=== PATIENT | female | born 1970 | race Asian ===

== ENCOUNTER 2016-10-08 13:07 | Emergency (ER) | payer MEDICAID ==
--- NOTE | 2016-10-08 13:55 | ED Physician Chart ---
General Adult HPI - General Chief complaint: Vaginal Bleeding Stated complaint: VAGINAL DISCHARGE Time Seen by Provider: 10/08/16 13:23 Source: patient Mode of arrival: ambulatory Limitations: no limitations - History of Present Illness HPI Narrative: THIS IS A 46 YO FEMALE WITH VAGINAL BLEEDING SINCE HAVING AFTER TAKING AN PILL SIX DAYS AGO. SHE IS NOW CONCERNED ABOUT THE POSSIBILITY OF AN ECTOPIC SINCE HER HCG LEVEL IS UP RATHER THAN DOWN. SHE HAS HAD AN ULTRASOUND DONE AND THE UTERUS WAS EMPTY. Onset (ago): day(s) Location: pelvis, genitals Radiation: non-radiation Severity: mild Quality: dull Consistency: now resolved Improves with: none Worsens with: none Associated symptoms: other (BLEEDING) Treatments Prior to Arrival: none - Related Data Home Medications Medication Instructions Recorded Confirmed Lisdexamfetamine Dimesylate 1 tab PO DAILY 10/08/16 10/08/16 [Vyvanse] Allergies Allergy/AdvReac Type Severity Reaction Status Date / Time No Known Allergies Allergy Verified 10/08/16 13:31 Review of Systems Constitutional: Denies: 2, 3 Eyes: Denies: Eye Pain, Eye Discharge ENT ED: Denies: Ear Pain, Throat Pain Cardiovascular: Denies: Chest Pain, Palpitations Respiratory: Denies: 2, 3 Gastrointestinal: Denies: Abdominal Pain, Nausea Genitourinary: Reports: As per HPI, Other (POST AB VAGINAL BLEEDING). Denies: Urgency, Dysuria Musculoskeletal: Denies: Back Pain, Joint Swelling Integumentary: Denies: Rash, Lesions Neurological: Denies: Headache, Weakness Psychiatric: Denies: Anxiety, Depression Endocrine: Denies: 2, 3 Hematological/Lymphatic: Denies: Easy Bleeding, Easy Bruising Past Medical History - Past Medical History Attestation: Yes The following information was validated with the patient. 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) Family history: Reports: Other family history - Social History Exposure to secondhand smoke: No Alcohol use: Reports: None Drug use: Reports: None Family Medical History - Family Member Mother Age: 68 Ethnicity: Non- Living Status: Still Living Hx Family Hypertension: Yes Physical Exam - General Limitations: no limitations General appearance: alert, in no apparent distress, anxious - Head Head exam: atraumatic, normal inspection - Eye Eye exam: Present: normal appearance - ENT ENT exam: normal exam - Expanded ENT Exam External ear exam: Present: normal external inspection Mouth exam: Present: normal external inspection Throat exam: Present: normal inspection - Neck Neck exam: Present: normal inspection - Chest Chest inspection: Present: normal inspection - Respiratory Respiratory exam: Present: normal lung sounds bilaterally - Cardiovascular Cardiovascular exam: Present: regular rate, normal rhythm - Abdominal Exam Abdominal exam: Present: soft - External exam: Present: normal external exam - Expanded Exam OB exam: Present: deferred - Extremities Exam Extremities exam: Present: normal inspection Course Vital Signs Temp 98.6 F 10/08/16 13:15 HR 86 10/08/16 13:15 RR 18 10/08/16 13:15 BP 157/109 10/08/16 13:15 O2 Sat % 98 10/08/16 13:15 Temp 98.6 F 10/08/16 13:15 HR 86 10/08/16 13:15 RR 18 10/08/16 13:15 BP 157/109 10/08/16 13:15 O2 Sat % 98 10/08/16 13:15 Medical Decision Making - Medical Decision Making Medical decision making narrative: HER HCG LEVEL TODAY IS ONLY 21 AND IT WAS 284 ON THE LAST MACHINE. THIS WAS EXPLAINED TO THE PATIENT AND THAT SHE IS OK. - Medical Records Medical records reviewed: Yes I reviewed the patient's medical records. - Lab Data Lab results reviewed: Yes I reviewed the patient's lab results. Disposition Disposition: PT DISCHARGED HOME Condition: Improved Instructions: Abnormal Uterine Bleeding Additional Instructions: TOLERATED. ED Discharge Plan - Patient Disposition Admit/Discharge/Transfer: PT DISCHARGED HOME Condition at Disposition: Improved Instructions: Abnormal Uterine Bleeding Additional Instructions: TOLERATED.
== END 2016-10-08 15:14 | disposition home or self-care (01) ==
LOC: ER 13:07
DX: N93.9 Abnormal uterine and vaginal bleeding, unspecified (principal); I10 Essential (primary) hypertension; Z90.49 Acquired absence of other specified parts of digestive tract
CPT/HCPCS: 36415-UA; 84702-TC; Z7502